=== PATIENT | female | born 1995 | race African-American/Black ===

== ENCOUNTER 2025-04-10 19:01 | Emergency (ER) | payer SELFPAY ==
[2025-04-10] MEDS ORDERED: Dexamethasone 4 MG TAB ONE (21:19)
[2025-04-10] MEDS ORDERED: Bicillin LA 1.2 MILLION UNITS/2 ML SYRINGE ONE (21:19)
[2025-04-10] MEDS ORDERED: Ketorolac Tromethamine 30 MG (1 mL) VIAL ONE (21:19)
== END 2025-04-10 21:50 | disposition home or self-care (01) ==
LOC: ERS 19:01
DX: J02.0 Streptococcal pharyngitis (principal); F17.290 Nicotine dependence, other tobacco product, uncomplicated
CPT/HCPCS: 87081; 87430; 96372; 99283; J0561; J1885; J8540